=== PATIENT | male | born 1995 | race African-American/Black ===

== ENCOUNTER 2016-10-31 12:51 | Emergency (ER) | payer OTHER ==
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
== END 2016-10-31 15:55 | disposition home or self-care (01) ==
LOC: CED 12:51 → CFTX 15:24 → CED 15:24
DX: S16.1XXA Strain of muscle, fascia and tendon at neck level, initial encounter (principal); F17.200 Nicotine dependence, unspecified, uncomplicated; V49.50XA Passenger injured in collision with unspecified motor vehicles in traffic accident, initial encounter; Y92.410 Unspecified street and highway as the place of occurrence of the external cause
CPT/HCPCS: 72040; 99283

== ENCOUNTER 2016-12-02 22:50 | Emergency (ER) | payer OTHER ==
[2016-12-02 23:22] LABS: URINE SOURCE CLEAN CATCH
[2016-12-02 23:26] LABS: URINE APPEARANCE CLEAR; URINE BILIRUBIN NEG (NEG); URINE BLOOD NEG (NEG); URINE COLOR YELLOW; URINE GLUCOSE NEG (NEG); URINE KETONE NEG (NEG); URINE LEUKOCYTE ESTERASE NEG (NEG); URINE NITRATE NEG (NEG); URINE PH 6.5 (5-8); URINE PROTEIN NEG (NEG); URINE SPECIFIC GRAVITY 1.022 (1.003-1.035)
[2016-12-02 23:28] LABS: CULTURE INDICATED? NO
[2016-12-06 08:41] LABS: CHLAMYDIA TRACH Not Detected (Not Detected); N GONOR Not Detected (Not Detected)
== END 2016-12-02 23:50 | disposition home or self-care (01) ==
LOC: CFTX 22:50 → CED 22:50 → CFTX 23:19
PROVIDERS: Nurse Practitioner
DX: R30.0 Dysuria (principal); F17.200 Nicotine dependence, unspecified, uncomplicated
CPT/HCPCS: 81003; 87491; 87591; 99283